=== PATIENT | male | born 1955 | race Caucasian/White ===

== ENCOUNTER 2019-11-22 22:06 | Inpatient (IN) | payer MEDICAID ==
[~2019-11-22] VITALS: Ht 167.6 cm; Wt 82.2 kg
[2019-11-22 22:25] VITALS: Ht 167.6 cm; Wt 82.2 kg
--- NOTE | 2019-11-22 22:50 | NUR ---
PT PRESENTS TO ED WITH [facility] FOR C/O SUDDEN ONSET SOB. PER PT HE HAS HAD A DRY COUGH FOR THE PAST 2 DAYS HOWEVER TODAY IT GOT WORSE. 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 UPON ARRIVAL PT 02 SATURATION IS ABOUT 90% ON RA. PT PLACED ON 4L NC UPON ARRIVAL. PT SATURATION IMPROVED TO 97%. AWAITING MSE AT THIS TIME PT LUNG SOUNDS ARE DIMINISHED IN ALL BRIGGS. PT DENIES ANY PRIOR MEDICAL HX. PT AXO X4. PT SPEAKING IN SHORT 4 TO 5 WORD SENTENCES. NAD AT THIS TIME. PT CONNECTED TO FULL CM AND PULSE OX MONITORS.
--- NOTE | 2019-11-22 23:10 | NUR ---
MD AUGUSTE AT BEDSIDE FOR MSE
[2019-11-23] VITALS (7 sets, daily range): BP systolic 110–136; BP diastolic 72–89
[2019-11-23 00:04] LABS: CALCIUM 8.5 mg/dL (8.5-10.1); CARBON DIOXIDE 26.8 mmol/L (21-32); CHLORIDE SERUM 102 mmol/L (98-107); GFR1 > 60 mL/min; GLUCOSE SERUM 111 mg/dL (74-106); POTASSIUM SERUM 3.6 mmol/L (3.5-5.1); SODIUM SERUM 135 mmol/L (136-145)
[2019-11-23 00:15] LABS: ALBUMIN 3.2 g/dL (3.4-5.0); ALKALINE PHOSPHATASE 77 U/L (46-116); ALT/SGPT 48 U/L (16-63); AST/SGOT 28 U/L (15-37); BILIRUBIN TOTAL 0.9 mg/dL (0.20-1.00); TOTAL PROTEIN, SERUM 6.9 g/dL (6.4-8.2)
[2019-11-23 00:39] LABS: BASOPHIL % 0.5 % (0-2); PLATELET COUNT 257 x10^3mcL (130-400); RED CELL DISTRIBUTION WIDTH 12.5 % (11.5-14.5)
--- NOTE | 2019-11-23 01:57 | NUR ---
REPORT GIVEN TO ULISES CLARK. ALL QUESTIONS AND CONCERNS ADDRESSED AT THIS TIME
--- NOTE | 2019-11-23 02:41 | NUR ---
RECEIVED FROM ER, TRANSPORTED VIA [facility]. AWAKE AND ALERT, ORIENTED TO NAME, PLACE, TIME AND SITUATION. STATED SOUGHT ADMISSION DUE TO COUGH FOR FEW DAYS AND THEN SHORTNESS OF BREATH TONIGHT. STATED HAD JUST HAD THE FLU. BREATHING EVEN AND UNLABORED ON ROOM AIR. DENIES HAVING SHORTNESS OF BREATH AT THIS TIME. LUNG SOUNDS DIMINISHED TO BASES. STATED HAVING NON-PRODUCTIVE COUGH. NO COUGHING NOTED AT THIS TIME. CAME UP WITH IV ROCEPHIN, ABOUT 10ML LEFT IN BAG. FLUSHED AND SALINE LOCKED IV TO LEFT AC AFTER IV ROCEPHIN COMPLETED. SINUS RHYTHM ON TELE #25. DENIES HAVING ANY PAIN. INSTRUCTED ON USE OF CALL LIGHT TO CALL FOR ASSISTANCE, PLACED WITHIN EASY REACH. BED IN LOWEST POSITION. UPPER SIDE RAILS RAISED.
[2019-11-23 03:15] LABS: microscopic required? YES; urine erythrocyte 1+ (NEGATIVE)
--- NOTE | 2019-11-23 04:32 | NUR ---
EYES CLOSED, BREATHING EVEN AND UNLABORED ON ROOM AIR. CALL LIGHT WITHIN EASY REACH.
--- NOTE | 2019-11-23 05:54 | NUR ---
EYES CLOSED, BREATHING EVEN AND UNLABORED ON ROOM AIR. SINUS RHYTHM, HR 62/MIN. CALL LIGHT WITHIN EASY REACH.
[2019-11-23 06:50] LABS: BASOPHIL % 0.5 % (0-2); PLATELET COUNT 247 x10^3mcL (130-400); RED CELL DISTRIBUTION WIDTH 12.7 % (11.5-14.5)
[2019-11-23 06:59] LABS: ALKALINE PHOSPHATASE 74 U/L (46-116); ALT/SGPT 47 U/L (16-63); AST/SGOT 21 U/L (15-37); BILIRUBIN TOTAL 1.3 mg/dL (0.20-1.00); CALCIUM 8.5 mg/dL (8.5-10.1); CARBON DIOXIDE 29.2 mmol/L (21-32); CHLORIDE SERUM 103 mmol/L (98-107); GFR1 > 60 mL/min; GLUCOSE SERUM 95 mg/dL (74-106); MAGNESIUM 2.3 mg/dL (1.8-2.4); POTASSIUM SERUM 4.4 mmol/L (3.5-5.1); SODIUM SERUM 137 mmol/L (136-145)
[2019-11-23 07:16] LABS: ALBUMIN 3.2 g/dL (3.4-5.0)
--- NOTE | 2019-11-23 07:17 | NUR ---
AWAKE AND ALERT, BREATHING EVEN AND UNLABORED ON ROOM AIR. CALL LIGHT WITHIN EASY REACH. ENDORSED TO NURSE RIYA
--- NOTE | 2019-11-23 07:30 | NUR ---
RECEIVED PT IN BED A/A/OX4 DENIES HAILE. RESP EVEN AND UNLABORED WITH DIMINISHED BREATHSOUNDS BILAT BASES. REPORTS IMPROVEMENT WITH SOB. DENIES ANY CP/PRESSURE AT THIS TIME. NO EDEMA NOTED WITH IV SL TO LAC. ABD SOFT, NONTENDER WITH ACTIVE BS X4. DENIES ANY N/V AT THIS TIME. VOIDING FREELY AND AMBULATORY. CALL LIGHT IN REACH NEEDS ATTENDED TO.
--- NOTE | 2019-11-23 10:23 | NUR ---
ECHOCARDIOGRAM COMPLETED.
--- NOTE | 2019-11-23 12:15 | NUR ---
PT RESTING COMFORTABLY AT THIS TIME. DENIES ANY DISCOMFORT. CALL LIGHT IN REACH NEEDS ATTENDED TO.
--- NOTE | 2019-11-23 15:55 | NUR ---
PT RESTING AT THIS TIME. NOTED AMBULATING IN THE HALLWAY STATED HE TOLERATED ACTIVITY BETTER. CALL LIGHT IN REACH NEEDS ATTENDED TO.
--- NOTE | 2019-11-23 18:52 | NUR ---
PT RESTING AT THIS TIME DENIES ANY DISCOMFORT. CALL LIGHT IN REACH NEEDS ATTENDED TO.
--- NOTE | 2019-11-23 19:33 | NUR ---
AWAKE AND ALERT, WATCHING TV. BREATHING EVEN AND UNLABORED ON ROOM AIR. SINUS RHYTHM ON TELE. DENIES HAVING PAIN. SALINE LOCK TO LEFT AC. CALL LIGHT WITHIN EASY REACH. VOIDED TO URINAL.
--- NOTE | 2019-11-23 22:37 | NUR ---
EYES CLOSED, BREATHING EVEN AND UNLABORED ON ROOM AIR. CALL LIGHT WITHIN EASY REACH.
--- NOTE | 2019-11-24 01:50 | NUR ---
EYES CLOSED, BREATHING EVEN AND UNLABORED ON ROOM AIR. CALL LIGHT WITHIN EASY REACH.
[2019-11-24 05:49] VITALS: BP 115/80
--- NOTE | 2019-11-24 06:22 | NUR ---
AWAKE AND ALERT, STATED SLEPT WELL. DENIES HAVING CHEST PAIN OR CHEST DISCOMFORT. CALL LIGHT WITHIN EASY REACH.
--- NOTE | 2019-11-24 07:05 | NUR ---
AWAKE AND ALERT, DENIES HAVING CHEST PAIN OR SHORTNESS OF BREATH. IN NO ACUTE DISTRESS. ENDORSED TO NURSE LUIS ALFREDO
--- NOTE | 2019-11-24 07:14 | NUR ---
REPORT TAKEN FROM TRIMMING PRESS OPERATOR NURSE AT THE BEDSIDE, PATIENT AWAKE AND ALERT AT THIS TIME, NO ACUTE DISTRESS OBSERVED OR REPORTED, ADVISED TO CALL NURSE FOR ASSISTANCE, WILL CONTINUE TO MONITOR.
[2019-11-24 07:57] VITALS: BP 120/86
[2019-11-24] MEDS ORDERED: K-TAB10 MEQ PO (09:58)
[2019-11-24] MEDS ORDERED: LASIX40 MG PO (09:58)
[2019-11-24] MEDS ORDERED: ZESTRIL5 MG PO (09:59)
[2019-11-24] MEDS ORDERED: COR3 PO (09:59)
[2019-11-24 10:56] VITALS: BP 120/86
--- NOTE | 2019-11-24 11:32 | NUR ---
PATIENT TO BE DISCHARGED AT THIS TIME PER PROVIDER ORDER, PATIENT GIVEN DISCHARGE PACKET WITH DIRECTIONS TO FOLLOW UP WITH PRIMARY DOCTOR ON THE OF THIS MONTH, PATIENT ALSO GIVEN PRESCRIPTIONS WRITTEN BY THE DOCTOR, IV REMOVED FROM LEFT FOREARM WITH CATH INTACT, SITE DRESSED WITH GAUZE AND COBAN, TELE REMOVED AND RETURNED TO MT STATION. PATIENT TAKEN DOWN TO LOBBY BY ELECTRONIC GLUING MACHINE OPERATOR VIA WHEELCHAIR.
== END 2019-11-24 11:35 | disposition home or self-care (01) | DRG 194 ==
LOC: ED 22:06 → DU 11-23 01:08
PROVIDERS: Emergency Medicine; ADMIT Internal Medicine Pulmonary Disease
DX: I50.41 Acute combined systolic (congestive) and diastolic (congestive) heart failure (principal); J96.00 Acute respiratory failure, unspecified whether with hypoxia or hypercapnia; F17.210 Nicotine dependence, cigarettes, uncomplicated; N40.0 Benign prostatic hyperplasia without lower urinary tract symptoms; I27.20 Pulmonary hypertension, unspecified
CPT/HCPCS: 36600; 83880; 87804; 99406; G0378; J0696; J1644; J1940; J7060; J7620; Q0092